=== PATIENT | male | born 1995 | race Two or more races ===

== ENCOUNTER 2018-04-03 10:51 | Emergency (ER) | payer MEDICAID, OTHER, SELFPAY | END 2018-04-03 11:59 | disposition home or self-care (01) | LOC: M ED 10:51 | DX: L73.9 Follicular disorder, unspecified (principal); J45.909 Unspecified asthma, uncomplicated; F17.210 Nicotine dependence, cigarettes, uncomplicated | CPT/HCPCS: 99282 ==

== ENCOUNTER 2018-09-28 22:15 | Emergency (ER) | payer MEDICAID ==
[2018-09-28] MEDS ORDERED: diphenhydrAMINE INJ 50MG/ML VIAL (J1200) As Ordered (22:28)
[2018-09-28] MEDS: methylPREDNISolone INJ 125 MG/2 ML VIAL (J2930) IV (22:30)
[2018-09-28] MEDS: NS 1,000 ML IV (22:30)
[2018-09-28] MEDS: FAMOTIDINE IV BAG 20 MG in APPROPRIATE DILUENT 1 EA IV (22:30)
[2018-09-28] MEDS: diphenhydrAMINE INJ 50MG/ML VIAL (J1200) IV (22:30)
== END 2018-09-28 23:50 | disposition home or self-care (01) ==
LOC: M ED 22:15
DX: L50.0 Allergic urticaria (principal)
CPT/HCPCS: J1200

== ENCOUNTER → 2018-12-17 | Outpatient (REF) | payer MEDICAID ==
[~2018-12-17] MED LIST: BACT800T5 PO; BENA25CA4 PO; PRED20TA PO
[2018-12-17 18:28] LABS: ALT/SGPT 16 U/L (12-78)
[2018-12-17 18:29] LABS: ALBUMIN 3.5 GM/DL (3.2-5.2); BILIRUBIN,DIRECT < 0.1 MG/DL (0.0-0.2); BILIRUBIN,TOTAL 0.3 MG/DL (0.2-1.0); TOTAL PROTEIN 7.3 GM/DL (6.4-8.2)
[2018-12-17 19:16] LABS: HIV 1&2 SCREEN CENTAUR NEGATIVE (NEGATIVE)
== END ==
LOC: M LAB REF 16:59
PROVIDERS: ATTEND Nurse Practitioner Primary Care
DX: R76.11 Nonspecific reaction to tuberculin skin test without active tuberculosis (principal); R76.12 Nonspecific reaction to cell mediated immunity measurement of gamma interferon antigen response without active tuberculosis; A17.9 Tuberculosis of nervous system, unspecified

== ENCOUNTER 2018-12-18 18:55 | Emergency (ER) | payer OTHER, MEDICAID ==
[~2018-12-18] VITALS: Ht 188 cm; Wt 68.6 kg
[2018-12-18] MEDS ORDERED: BACT800T5 PO (19:55)
[2018-12-18 20:09] VITALS: BP 116/68
== END 2018-12-18 20:11 | disposition home or self-care (01) ==
LOC: M ED 18:55
DX: S46.912A Strain of unspecified muscle, fascia and tendon at shoulder and upper arm level, left arm, initial encounter (principal); L08.9 Local infection of the skin and subcutaneous tissue, unspecified; X58.XXXA Exposure to other specified factors, initial encounter; Y92.119 Unspecified place in children's home and orphanage as the place of occurrence of the external cause; Y93.89 Activity, other specified; Y99.0 Civilian activity done for income or pay; J45.909 Unspecified asthma, uncomplicated; Z72.0 Tobacco use; F12.10 Cannabis abuse, uncomplicated

== ENCOUNTER 2019-11-27 12:18 | Emergency (ER) | payer MEDICAID, OTHER ==
[~2019-11-27] VITALS: Ht 188 cm; Wt 70.9 kg
[2019-11-27 12:18] VITALS: BP 123/69
[2019-11-27 13:07] LABS: INFLUENZA A AMPLIFICATION NEGATIVE (NEGATIVE); INFLUENZA B AMPLIFICATION POSITIVE (NEGATIVE)
== END 2019-11-27 13:45 | disposition home or self-care (01) ==
LOC: M ED 12:18
DX: J10.89 Influenza due to other identified influenza virus with other manifestations (principal)

== ENCOUNTER 2020-04-13 21:08 | Emergency (ER) | payer MEDICAID ==
[~2020-04-13] VITALS: Ht 188 cm; Wt 64.8 kg
[2020-04-13 21:09] VITALS: BP 121/75
[2020-04-13] MEDS ORDERED: BACITRACIN OINTMENT 30GM TUBE TOP STA (23:50)
[2020-04-13] MEDS ORDERED: BACI28.43 TOP (23:52)
[2020-04-13] MEDS ORDERED: IBUP-1022 PO (23:52)
[2020-04-14] MEDS ORDERED: IBUPROFEN 600MG TAB PO ONE
== END 2020-04-14 00:11 | disposition home or self-care (01) ==
LOC: M ED 21:08
DX: S01.532A Puncture wound without foreign body of oral cavity, initial encounter (principal); V18.2XXA Unspecified pedal cyclist injured in noncollision transport accident in nontraffic accident, initial encounter; Y92.89 Other specified places as the place of occurrence of the external cause; Y99.8 Other external cause status; F17.200 Nicotine dependence, unspecified, uncomplicated

== ENCOUNTER 2020-07-04 19:55 | Emergency (ER) | payer MEDICAID ==
[~2020-07-04] VITALS: Ht 188 cm; Wt 68.9 kg
[~2020-07-04 19:55] MED LIST changes: +BACI28.43 TOP; +IBUP-1022 PO
[2020-07-04] MEDS ORDERED: NEOSPORIN OINT 0.9 GM PKT TOP ONE (22:00)
[2020-07-04] MEDS ORDERED: NAPROXEN 250 MG TAB PO ONE (22:00)
--- NOTE | 2020-07-04 22:36 | REPVR ---
PROCEDURE INFORMATION: Exam: XR Right Toe(s) Exam date and time: 07/04/2020 10:26 PM Age: 24 years old Clinical indication: Pain; Toes; Right; Additional info: Hyperflexed great toe during fall TECHNIQUE: Imaging protocol: XR Right toes. Views: Minimum 2 views. COMPARISON: No relevant prior studies available. FINDINGS: Bones/joints: Oblique slightly displaced fracture involving the proximal phalanx of the great toe with involvement of the medial aspect of the articular surface distally. Soft tissues: Normal. IMPRESSION: Slightly displaced oblique fracture involving the proximal phalanx of the great toe with extension into the medial aspect of the distal articular surface. Electronically signed by: James Duval On 07/04/2020 22:36:38 PM
--- NOTE | 2020-07-04 22:37 | REPVR ---
PROCEDURE INFORMATION: Exam: XR Right Shoulder Exam date and time: 07/04/2020 10:26 PM Age: 24 years old Clinical indication: Pain; Shoulder; Right; Additional info: Shoulder pain after fall TECHNIQUE: Imaging protocol: XR Right shoulder. Views: 2 or more views. COMPARISON: No relevant prior studies available. FINDINGS: Bones/joints: Normal. No fracture or dislocation. Soft tissues: Normal. IMPRESSION: Negative right shoulder. Electronically signed by: James Duval On 07/04/2020 22:37:23 PM
[2020-07-04] MEDS ORDERED: NAPR-837 PO (23:20)
[2020-07-04] MEDS ORDERED: BACI500O21 TOP (23:20)
[2020-07-04 23:36] VITALS: BP 140/75
== END 2020-07-04 23:38 | disposition home or self-care (01) ==
LOC: M ED 19:55
DX: S92.411A Displaced fracture of proximal phalanx of right great toe, initial encounter for closed fracture (principal); S50.11XA Contusion of right forearm, initial encounter; V18.4XXA Pedal cycle driver injured in noncollision transport accident in traffic accident, initial encounter; Y92.410 Unspecified street and highway as the place of occurrence of the external cause; M25.511 Pain in right shoulder

== ENCOUNTER 2021-03-10 15:35 | Emergency (ER) | payer MEDICAID ==
[~2021-03-10] VITALS: Ht 188 cm; Wt 68.0 kg
[~2021-03-10 15:35] MED LIST changes: +BACI500O21 TOP; +NAPR-837 PO
[2021-03-10] MEDS ORDERED: CLAR40CA (15:50)
[2021-03-10] MEDS ORDERED: IBUP-1022 PO (17:12)
[2021-03-10] MEDS ORDERED: ANBE20GE TOP (17:12)
[2021-03-10] MEDS ORDERED: AUGM875T28 PO (17:12)
[2021-03-10 17:32] VITALS: BP 135/84
== END 2021-03-10 17:33 | disposition home or self-care (01) ==
LOC: M ED 15:35
DX: K02.9 Dental caries, unspecified (principal); K04.7 Periapical abscess without sinus; J45.909 Unspecified asthma, uncomplicated; F17.200 Nicotine dependence, unspecified, uncomplicated

== ENCOUNTER 2021-04-06 00:17 | Emergency (ER) | payer MEDICAID ==
[~2021-04-06] VITALS: Ht 188 cm; Wt 68.3 kg
[~2021-04-06 00:17] MED LIST changes: +ANBE20GE TOP; +AUGM875T28 PO; +CLAR40CA
[2021-04-06 00:18] VITALS: BP 141/64
[2021-04-06] MEDS ORDERED: PROAAER10 INH (00:26)
[2021-04-06] MEDS: ALBUTEROL 90 MCG/ACT 8GM HFA INHALER INH SCH ×3 (02:15→02:58)
[2021-04-06] MEDS ORDERED: VENTAER INH (03:00)
== END 2021-04-06 03:10 | disposition home or self-care (01) ==
LOC: M ED 00:17
DX: J45.21 Mild intermittent asthma with (acute) exacerbation (principal); R09.89 Other specified symptoms and signs involving the circulatory and respiratory systems; Z72.0 Tobacco use

== ENCOUNTER 2021-06-10 16:41 | Emergency (ER) | payer MEDICAID ==
[~2021-06-10] VITALS: Ht 188 cm; Wt 65.5 kg
[~2021-06-10 16:41] MED LIST changes: +PROAAER10 INH; +VENTAER INH
[2021-06-10] MEDS ORDERED: NS 1,000 ML IV ONE (17:25)
[2021-06-10] MEDS ORDERED: ONDANSETRON 4MG/2ML VIAL IV ONE (17:25)
[2021-06-10 18:16] LABS: BASO % 0.1 % (0.0-1.0); HEMATOCRIT 45.1 % (42.0-52.0); HEMOGLOBIN 14.3 g/dl (13.5-17.5); LYMPH # 1.4 10^3/uL (1.5-5.0); LYMPH % 8.8 % (24.0-44.0); MEAN CORPUSCULAR HEMOGLOBIN 27.3 pg (27.0-33.0); MEAN CORPUSCULAR HGB CONC 31.7 g/dl (32.0-36.5); MEAN CORPUSCULAR VOLUME 86.1 fl (80.0-96.0); MONO # 0.8 10^3/uL (0.0-0.8); MONO % 5.3 % (2.0-8.0); NEUTROPHILS # 13.3 10^3/uL (1.5-8.5); NEUTROPHILS % 85.2 % (36.0-66.0); PLATELET COUNT, AUTOMATED 283 10^3/uL (150-450); RED BLOOD COUNT 5.24 10^6/uL (4.30-6.10); WHITE BLOOD COUNT 15.6 10^3/uL (4.0-10.0)
[2021-06-10 18:40] LABS: ALBUMIN 4.3 GM/DL (3.2-5.2); ALT/SGPT 57 U/L (12-78); BILIRUBIN,DIRECT 0.2 MG/DL (0.0-0.2); BILIRUBIN,TOTAL 0.4 MG/DL (0.2-1.0); BLOOD UREA NITROGEN 17 MG/DL (7-18); CALCIUM LEVEL 9.3 MG/DL (8.5-10.1); CARBON DIOXIDE LEVEL 23 MEQ/L (21-32); CHLORIDE LEVEL 105 MEQ/L (98-107); ETHYL ALCOHOL (ETHANOL) < 0.003 % (0.000-0.010); GLOMERULAR FILTRATION RATE > 60.0 (>60); GLUCOSE, FASTING 139 MG/DL (70-100); LIPASE 20 U/L (73-393); POTASSIUM SERUM 4.5 MEQ/L (3.5-5.1); SODIUM LEVEL 138 MEQ/L (136-145); TOTAL PROTEIN 8.5 GM/DL (6.4-8.2)
[2021-06-10 20:12] VITALS: BP 135/64
[2021-06-10] MEDS ORDERED: ONDA4TAB6 PO (20:28)
== END 2021-06-10 21:10 | disposition home or self-care (01) ==
LOC: M ED 16:41
DX: F10.988 Alcohol use, unspecified with other alcohol-induced disorder (principal); R11.2 Nausea with vomiting, unspecified
CPT/HCPCS: 80048; 80076; 82077; 83690; 85025; 96374; 99284; J2405

== ENCOUNTER 2021-07-22 07:22 | Emergency (ER) | payer MEDICAID ==
[~2021-07-22] VITALS: Ht 188 cm; Wt 65.4 kg
[~2021-07-22 07:22] MED LIST changes: +ONDA4TAB6 PO
--- NOTE | 2021-07-22 08:30 | REP ---
INDICATION: pain over lateral side, NKI. COMPARISON: None. TECHNIQUE: Five views of the right knee were obtained. FINDINGS: There is no evidence of fracture or dislocation. The patellofemoral joint and the medial and lateral joint space compartments of the knee appear unremarkable. There is no knee joint effusion. The periarticular soft tissues are normal. IMPRESSION: Normal right knee. <Electronically signed by Antonino De Guzman > 07/22/21 [id number]
[2021-07-22 08:52] VITALS: BP 123/70
== END 2021-07-22 09:28 | disposition home or self-care (01) ==
LOC: M ED 07:22
DX: M25.561 Pain in right knee (principal); Z77.098 Contact with and (suspected) exposure to other hazardous, chiefly nonmedicinal, chemicals; Z79.899 Other long term (current) drug therapy

== ENCOUNTER 2021-10-11 07:40 | Emergency (ER) | payer MEDICAID ==
[~2021-10-11] VITALS: Ht 188 cm; Wt 69.8 kg
[2021-10-11 07:41] VITALS: BP 128/69
[2021-10-11] MEDS ORDERED: DOXY-443 PO (10:23)
== END 2021-10-11 10:38 | disposition home or self-care (01) ==
LOC: M ED 07:40
DX: L73.9 Follicular disorder, unspecified (principal); J45.909 Unspecified asthma, uncomplicated

== ENCOUNTER 2024-12-25 18:41 | Emergency (ER) | payer MEDICAID ==
[~2024-12-25] VITALS: Ht 188 cm; Wt 75.1 kg
[~2024-12-25 18:41] MED LIST changes: +BACI28.417 TOP; -BACI28.43 TOP; +DOXY-441 PO; +ONDA-282 PO; -ONDA4TAB6 PO
[2024-12-25] MEDS: KETOROLAC 60MG 2ML VIAL IM ONE (23:16)
[2024-12-26 00:04] VITALS: BP 124/72; TEMP 98; O2SAT 100
== END 2024-12-26 00:13 | disposition home or self-care (01) ==
LOC: M ED 18:41
DX: K08.89 Other specified disorders of teeth and supporting structures (principal)
CPT/HCPCS: 96372; 99283; J1885

== ENCOUNTER 2025-06-07 04:07 | Emergency (ER) | payer MEDICAID, SELFPAY ==
[~2025-06-07] VITALS: Ht 188 cm; Wt 70.5 kg
[2025-06-07 06:52] VITALS: BP 141/87; TEMP 97.7; O2SAT 100
[2025-06-07] MEDS: KETOROLAC 60 MG/2 ML VIAL IM ONE (07:01)
== END 2025-06-07 07:07 | disposition home or self-care (01) ==
LOC: M ED 04:07
DX: S92.491A Other fracture of right great toe, initial encounter for closed fracture (principal); S90.111A Contusion of right great toe without damage to nail, initial encounter; W22.8XXA Striking against or struck by other objects, initial encounter; Y92.099 Unspecified place in other non-institutional residence as the place of occurrence of the external cause; Y93.67 Activity, basketball; Y99.9 Unspecified external cause status; J45.909 Unspecified asthma, uncomplicated
CPT/HCPCS: 73630; 96372; 99283; J1885

== ENCOUNTER 2025-10-08 16:47 | Emergency (ER) | payer OTHER, SELFPAY ==
[~2025-10-08] VITALS: Ht 188 cm; Wt 73.8 kg
[~2025-10-08 16:47] MED LIST changes: -IBUP-1022 PO; +IBUP600T42 PO
[2025-10-08] MEDS: ACETAMINOPHEN 325 MG TAB PO ONE (20:35)
[2025-10-08] MEDS: IBUPROFEN 400 MG TAB PO ONE (20:38)
[2025-10-08] MEDS: LIDOCAINE 5% PATCH TD ONE (20:38)
[2025-10-08 21:25] VITALS: BP 135/76; TEMP 97.8; O2SAT 100
== END 2025-10-08 21:45 | disposition home or self-care (01) ==
LOC: M ED 16:47
DX: M54.50 Low back pain, unspecified (principal); M25.511 Pain in right shoulder; V49.40XA Driver injured in collision with unspecified motor vehicles in traffic accident, initial encounter; Y92.410 Unspecified street and highway as the place of occurrence of the external cause; Y93.89 Activity, other specified; Y99.9 Unspecified external cause status; J45.909 Unspecified asthma, uncomplicated; R91.1 Solitary pulmonary nodule